=== PATIENT | male | born 1950 | race Caucasian/White ===

== ENCOUNTER 2023-03-11 08:03 | Day surgery (SDC) | payer OTHER ==
--- NOTE | 2023-03-11 07:48 | HP ---
DATE OF SURGERY: 03/11/2023 HISTORY OF PRESENT ILLNESS: The patient is a 72-year-old with no bloody stools. No change in bowel habits. No new pain. Family history negative for colon cancer. Last colonoscopy six or seven years ago. He is in need of follow up screening colonoscopy. PAST MEDICAL HISTORY: Cataracts. He wears corrective lenses. Hard of hearing. He is on some blood pressure medication. PAST SURGICAL HISTORY: Cataract surgery. Inguinal hernia repair. Elbow surgery. Knee surgery. He had colonoscopy in the past. MEDICATIONS: Amlodipine, lisinopril, aspirin, vitamin E, zinc, loratadine. ALLERGIES: NKDA. FAMILY HISTORY: Diabetes, hypertension. Negative for colon cancer. SOCIAL HISTORY: Former smoker. Occasional alcohol use no abuse. REVIEW OF SYSTEMS: Fourteen systems reviewed. No chest pain or palpitations. Other systems negative or noncontributory as above and per preadmission questionnaire. PHYSICAL EXAMINATION: Height 5'8". BMI 30.41. GENERAL: No acute distress. HEENT: Sclerae nonicteric. EOMI. Oral mucous membranes moist. NECK: No JVD. CHEST: Equal excursion, nonlabored breathing. CVS: Regular rate and rhythm. ABDOMEN: Soft. No peritoneal signs. EXTREMITIES: No significant edema. NEURO: Alert, oriented, moving extremities symmetrically. No gross motor deficits noted. RECTAL: Deferred timed to endoscopy exam. PSYCH: Appropriate mood and affect. SKIN: Dry. IMPRESSION: The patient is in need of follow up screening colonoscopy. I feel he is a candidate. He was shown the risk sheet, explained the procedure in detail including but not limited to risk of bleeding or infection, risk of bowel injury or perforation possibly requiring further procedure, risk of missed or nondiagnosis or incomplete exam possibly requiring barium enema, other studies or procedures, general risk of anesthesia or sedation, risk of bowel prep but not limited to, consent obtained. Will proceed with follow up screening colonoscopy under MAC anesthesia as an outpatient.
[2023-03-11] MEDS ORDERED: Lactated Ringers 1,000 ML IV SCH (08:30)
[2023-03-11] MEDS ORDERED: Lactated Ringers 1,000 ML IV ONE (08:57)
[2023-03-11] MEDS ORDERED: Xylocaine-Mpf 2% 5 Ml Vial ONE (10:30)
[2023-03-11] MEDS ORDERED: DIPRIVAN 200 MG/20 ML IV ONE (10:31)
[2023-03-11] MEDS ORDERED: ATROPINE SULFATE 1MG ONE (10:45)
[2023-03-11 11:40] VITALS: BP 140/80; PULSE 62; O2SAT 97
--- NOTE | 2023-03-11 11:54 | OP ---
SURGERY DATE/TIME: 03/11/2023 1044 PREOPERATIVE DIAGNOSIS: Need for screening colonoscopy. POSTOPERATIVE DIAGNOSES: 1) Limited bowel prep (large amount of liquidy stool throughout the colon limiting the exam for small lesions). 2) Small early rectal polyp versus hyperplastic lesion. 3) ASA Class III. 4) Withdrawal time approximately 8 minutes. PROCEDURES: 1) Colonoscopy to cecum. 2) Hot biopsy polypectomy small early polyp versus hyperplastic lesion rectum. SURGEON: Dr. Bryn Siegel. ANESTHESIA: MAC. ESTIMATED BLOOD LOSS: Minimal. INDICATIONS: As noted above. Risks and benefits explained in detail but not limited to and consent obtained. DESCRIPTION OF PROCEDURE AND FINDINGS: The patient is taken to the endoscopy room. MAC anesthesia induced. After official time out and no disagreement with planned procedure, digital rectal exam did not reveal any rectal masses. Video colonoscope inserted and passed up through the slightly tortuous sigmoid, descending, transverse and ascending colon around to the cecum. Appendiceal orifice and ileocecal valve well visualized. Prep overall was limited. There was a large amount of liquid stool throughout the entire colon limiting the exam for very small lesions this is suction irrigated as clear as possible but did limit the exam for small lesions. The scope is carefully withdrawn over the next 8 minutes. There were no signs of any large polyps, masses or obstructing lesions. There was a small 2 mm early polyp versus hyperplastic lesion in the rectum removed with hot biopsy forceps. Good hemostasis was noted. Again he had limited prep. If this polyp is benign he will need to follow up in five years depending on the path but will await final path results to determine follow up time. Findings discussed with the family in the waiting area.
== END 2023-03-11 11:47 | disposition home or self-care (01) ==
LOC: SDC 08:03
PROVIDERS: ATTEND Surgery
DX: Z12.11 Encounter for screening for malignant neoplasm of colon (principal); K62.1 Rectal polyp
CPT/HCPCS: J0461; J2704